=== PATIENT | female | born 1980 | race Two or more races ===

== ENCOUNTER 2020-05-30 07:33 | Inpatient (IN) | payer BC ==
[~2020-05-30] VITALS: Ht 157.5 cm; Wt 81.8 kg
[2020-05-30] MEDS ORDERED: OXYTOCIN 30U/ 0.9% NaCL 500ML 500 ML ONE (09:11)
[2020-05-30] MEDS ORDERED: NEWBORN KIT ONE (09:11)
[2020-05-30] MEDS: LACTATED RINGERS 1,000 ML IV SCH ×2 (09:15→14:42)
[2020-05-30] MEDS ORDERED: OXYTOCIN 30U/ 0.9% NaCL 500ML 500 ML IV ONE (09:17)
[2020-05-30] MEDS ORDERED: D5%-LACTATED RINGERS 1,000 ML IV SCH (09:17)
[2020-05-30] MEDS: PENICILLIN GK 2,500,000 UNITS in DEXTROSE 5% 100 ML IVPB SCH ×4 (09:20→21:07)
[2020-05-30] MEDS ORDERED: ONDANSETRON 2MG/ML, 2ML IVPush PRN (09:30)
[2020-05-30] MEDS ORDERED: PENICILLIN GK 5,000,000 UNITS in DEXTROSE 5% 100 ML IVPB ONE (09:30)
[2020-05-30] MEDS ORDERED: TERBUTALINE 1 MG/ML, 1ML SQ PRN (09:30)
[2020-05-30] MEDS ORDERED: TERBUTALINE 1 MG/ML, 1ML IVPush PRN (09:30)
[2020-05-30] MEDS ORDERED: FENTANYL PF 100 MCG/2ML IV PRN (09:30)
[2020-05-30] MEDS ORDERED: FENTANYL PF 100 MCG/2ML IVPush PRN (09:30)
[2020-05-30 09:47] LABS: BASOPHILS # (AUTO) 0.02 x10^3/uL (0-0.1); BASOPHILS % (AUTO) 0 % (0-1); EOSINOPHILS % (AUTO) 1 % (1-7); LYMPHOCYTES # (AUTO) 1.44 x10^3/uL (1-3.4); LYMPHOCYTES % (AUTO) 16 % (22-44); MD NO; MEAN CORPUSCULAR HEMOGLOBIN 30.4 pg (27.0-34.8); MEAN CORPUSCULAR HGB CONC 33.1 g/dL (32.4-35.8); MEAN PLATELET VOLUME 12.1 fL (7.4-10.4); MONOCYTES # (AUTO) 0.68 x10^3/uL (0.2-0.8); MONOCYTES % (AUTO) 8 % (2-9); NEUTROPHILS # (AUTO) 6.68 x10^3/uL (1.8-6.8); NEUTROPHILS % (AUTO) 75 % (42-75); PLATELET COUNT 174 x10^3/uL (130-400); RED BLOOD COUNT 4.62 x10^6/uL (3.82-5.3); RED CELL DISTRIBUTION WIDTH 13.2 % (9.6-15.2)
[2020-05-30] MEDS ORDERED: FLU VACC QS2020-21(6MOS UP)/PF 60MCG/0.5 ML SYR IM-VACC ONE (11:00)
[2020-05-30 12:28] LABS: AMPHETAMINE SCREEN, URINE Negative (Negative); BARBITURATE SCREEN, URINE Negative (Negative); BENZODIAZEPINE SCREEN, URINE Negative (Negative); CANNABINOID SCREEN, URINE Negative (Negative); COCAINE SCREEN, URINE Negative (Negative); METHADONE SCREEN, URINE Negative (Negative); OPIATE SCREEN, URINE Negative (Negative)
[2020-05-30] MEDS ORDERED: LIDOCAINE 1%, 20ML ONE (13:08)
[2020-05-30] MEDS ORDERED: MISOPROSTOL 200 MCG TABLET ONE (13:09)
[2020-05-30] MEDS ORDERED: OXYTOCIN 30U/ 0.9% NaCL 500ML 500 ML IV PRN (13:17)
[2020-05-30 19:10] VITALS: BP 121/80
[2020-05-30] MEDS ORDERED: PREN1TAB60 PO (20:13)
[2020-05-31] MEDS: LACTATED RINGERS 1,000 ML IV SCH ×2 (01:07→02:03)
[2020-05-31] MEDS: PENICILLIN GK 2,500,000 UNITS in DEXTROSE 5% 100 ML IVPB SCH ×2 (01:08→05:07)
[2020-05-31] MEDS ORDERED: BUPIVACAINE 0.25% ONE (02:18)
[2020-05-31] MEDS ORDERED: FENTANYL PF 100 MCG/2ML ONE (02:18)
[2020-05-31] MEDS ORDERED: FENTANYL/BUPIV./NS/PF 250 ML EPIDCONT ONE (02:18)
[2020-05-31] MEDS: EPHEDRINE 50 MG/ML, 1ML IVPush PRN ×2 (02:50→03:30)
[2020-05-31] MEDS: OXYTOCIN 30U/ 0.9% NaCL 500ML 500 ML IV SCH ×2 (08:02→18:02)
[2020-05-31] MEDS ORDERED: IBUPROFEN 600 MG TABLET ONE (08:18)
[2020-05-31] MEDS ORDERED: OXYTOCIN 30U/ 0.9% NaCL 500ML 500 ML ONE (08:18)
[2020-05-31] MEDS: IBUPROFEN 600 MG TABLET PO PRN ×3 (08:21→23:45)
[2020-05-31] MEDS ORDERED: SIMETHICONE 80 MG CHEW TAB PO PRN (08:30)
[2020-05-31] MEDS ORDERED: METHYLERGONOVINE 0.2 MG/ML IM PRN (08:30)
[2020-05-31] MEDS ORDERED: MISOPROSTOL 200 MCG TABLET PR PRN (08:30)
[2020-05-31] MEDS ORDERED: DIPH,PERTUSS(ACELL),TET VAC/PF NC IM-VACC PRN (08:30)
[2020-05-31] MEDS ORDERED: OXYcodone/APAP 5/325MG TABLET PO PRN ×2 (08:30)
[2020-05-31] MEDS ORDERED: CARBOPROST TROMETHAMINE 250 MCG/ML, 1ML IM PRN (08:30)
[2020-05-31] MEDS ORDERED: ACETAMINOPHEN 325 MG TABLET PO PRN ×2 (08:30)
[2020-05-31] MEDS: PRENATAL VIT/IRON/FA 1 EACH TABLET PO SCH (09:00)
[2020-05-31 10:00] VITALS: BP 102/71
[2020-05-31 15:00] VITALS: BP 124/77
[2020-05-31 19:15] VITALS: BP 111/64
[2020-05-31 20:36] LABS: BASOPHILS # (AUTO) 0.01 x10^3/uL (0-0.1); BASOPHILS % (AUTO) 0 % (0-1); EOSINOPHILS # (AUTO) 0.17 x10^3/uL (0-0.4); EOSINOPHILS % (AUTO) 1 % (1-7); LYMPHOCYTES # (AUTO) 1.49 x10^3/uL (1-3.4); LYMPHOCYTES % (AUTO) 13 % (22-44); MD NO; MEAN CORPUSCULAR HEMOGLOBIN 31.1 pg (27.0-34.8); MEAN CORPUSCULAR HGB CONC 33.7 g/dL (32.4-35.8); MEAN PLATELET VOLUME 12.4 fL (7.4-10.4); MONOCYTES # (AUTO) 0.77 x10^3/uL (0.2-0.8); MONOCYTES % (AUTO) 7 % (2-9); NEUTROPHILS # (AUTO) 9.09 x10^3/uL (1.8-6.8); NEUTROPHILS % (AUTO) 79 % (42-75); PLATELET COUNT 140 x10^3/uL (130-400); RED BLOOD COUNT 3.89 x10^6/uL (3.82-5.3); RED CELL DISTRIBUTION WIDTH 13.4 % (9.6-15.2)
[2020-05-31 23:30] VITALS: BP 114/72
[2020-05-31] MEDS: DOCUSATE 100 MG CAPSULE PO PRN (23:45)
[2020-06-01] MEDS: OXYTOCIN 30U/ 0.9% NaCL 500ML 500 ML IV SCH (04:02)
[2020-06-01 04:45] VITALS: BP 102/69
[2020-06-01 07:30] VITALS: BP 104/64
[2020-06-01] MEDS: PRENATAL VIT/IRON/FA 1 EACH TABLET PO SCH (07:52)
[2020-06-01] MEDS: DOCUSATE 100 MG CAPSULE PO PRN (07:52)
[2020-06-01] MEDS: IBUPROFEN 600 MG TABLET PO PRN ×2 (07:52→18:22)
[2020-06-01 19:50] VITALS: BP 113/71
[2020-06-02] MEDS: IBUPROFEN 600 MG TABLET PO PRN ×2 (06:37→16:26)
[2020-06-02] MEDS: PRENATAL VIT/IRON/FA 1 EACH TABLET PO SCH (07:23)
[2020-06-02] MEDS: DOCUSATE 100 MG CAPSULE PO PRN (07:23)
[2020-06-02 08:18] VITALS: BP 130/81
[2020-06-02] MEDS ORDERED: IBUP-1223 PO (12:36)
[2020-06-02] MEDS ORDERED: DOCU-131 PO (12:36)
== END 2020-06-02 20:48 | disposition home or self-care (01) | DRG 807 ==
LOC: LDOP 07:33 → LDIP 09:19 → 2NW 05-31 09:35
PROVIDERS: ADMIT Obstetrics & Gynecology Maternal & Fetal Medicine; ATTEND Obstetrics & Gynecology Maternal & Fetal Medicine
PROC: 10E0XZZ Delivery of Products of Conception, External Approach (ICD-10-PCS; principal; 2020-05-31)
PROC: 3E0R3BZ Introduction of Anesthetic Agent into Spinal Canal, Percutaneous Approach (ICD-10-PCS; 2020-05-31)
PROC: 00HU33Z Insertion of Infusion Device into Spinal Canal, Percutaneous Approach (ICD-10-PCS; 2020-05-31)
DX: O99.52 Diseases of the respiratory system complicating childbirth (principal); Z37.0 Single live birth; J45.909 Unspecified asthma, uncomplicated; O42.913 Preterm premature rupture of membranes, unspecified as to length of time between rupture and onset of labor, third trimester; Z20.828 Contact with and (suspected) exposure to other viral communicable diseases; Z3A.35 35 weeks gestation of pregnancy
CPT/HCPCS: 36415; J7121; 80307; 82947; 82962; 84112; 85025; 86592; 86850; 86900; 87081; 87635; 90715; G0378; J2540; J2590; J7120